=== PATIENT | female | born 1965 | race Caucasian/White ===

== ENCOUNTER → 2018-09-04 | Outpatient (CLI) | payer OTHER ==
[2018-09-07 15:06] LABS: HPV 16 Negative (Negative); HPV 18 Negative (Negative); HPV OTHER HR TYPES Negative (Negative)
== END | disposition home or self-care (01) ==
LOC: LAB 11:36 → LAB SHORT 11:36
PROVIDERS: Advanced Practice Midwife
DX: Z11.3 Encounter for screening for infections with a predominantly sexual mode of transmission (principal)
CPT/HCPCS: 87624; G0123

== ENCOUNTER 2019-05-30 09:04 | Emergency (ER) | payer OTHER ==
[~2019-05-30] VITALS: Ht 167.6 cm; Wt 65.8 kg
[2019-05-30] MEDS ORDERED: Valium5 MG PO (10:51)
[2019-05-30] MEDS ORDERED: Prednisone20 MG PO (10:51)
[2019-05-30] MEDS ORDERED: HYDR1TAB94 PO (10:53)
== END 2019-05-30 11:33 | disposition home or self-care (01) ==
LOC: ER 09:04
DX: M54.42 Lumbago with sciatica, left side (principal); F17.210 Nicotine dependence, cigarettes, uncomplicated
CPT/HCPCS: 96372; 99283-25; J1170; J3360